=== PATIENT | female | born 1995 | race Caucasian/White ===

== ENCOUNTER 2018-02-22 03:38 | Emergency (ER) | payer SELFPAY ==
[~2018-02-22] VITALS: Ht 175.3 cm; Wt 59.0 kg
[2018-02-22] MEDS ORDERED: IPRATROPIUM BROMIDE (0.02%) 0.5MG/2.5ML NEB HHN STA (04:04)
[2018-02-22] MEDS ORDERED: ALBUTEROL (0.083%) 2.5MG/3ML NEB HHN STA (04:04)
[2018-02-22] MEDS ORDERED: METHYLPREDNISOLONE SOD SUCC 125 MG/2 ML VIAL IV STA (04:04)
[2018-02-22] MEDS ORDERED: MAGNESIUM 2 G PREMIX 50 ML IV STA (04:04)
[2018-02-22 05:35] VITALS: BP 113/73
== END 2018-02-22 10:56 | disposition home or self-care (01) ==
LOC: ER 10:51
DX: J45.901 Unspecified asthma with (acute) exacerbation (principal); F12.90 Cannabis use, unspecified, uncomplicated; R00.0 Tachycardia, unspecified
CPT/HCPCS: 71045; 94644; 96365; 96375; 99285; J2930; J3475; J7611; Z7610